=== PATIENT | male | born 1985 | race Caucasian/White ===

== ENCOUNTER 2021-11-15 08:31 | Emergency (ER) | payer OTHER, SELFPAY ==
[2021-11-15 08:44] VITALS: BP 139/78; PULSE 105; RESP 18; TEMP 36.7; O2SAT 100
[2021-11-15 08:45] VITALS: BP 139/78; PULSE 105; RESP 18; TEMP 36.7; O2SAT 100
--- NOTE | 2021-11-15 09:00 | ED.URI ---
HPI - URI/Sore Throat General Chief Complaint: Upper Respiratory Infection Stated Complaint: Cold Time Seen by Provider: 11/15/21 08:45 Source: patient and RN notes reviewed Mode of arrival: ambulatory Limitations: no limitations History of Present Illness HPI Narrative: 2weeks Paul is a 36-year-old male patient who ambulated into the [facility]. Patient states he has had runny nose, cough, sinus and nasal congestion on and off fever since , 11/12/2021. Patient has been fully vaccinated for Covid and has his booster shot. Patient states he was around someone who did have Covid. Patient has been taking ibuprofen for the fever. Related Data Home Medications Medication Instructions Recorded Confirmed No Home Medications 11/15/21 11/15/21 Allergies Allergy/AdvReac Type Severity Reaction Status Date / Time No Known Allergies Allergy Mild Unverified 11/15/21 08:44 Review of Systems Review of Systems: CONSTITUTIONAL: Denies body aches,+ fever, denies chills, or sweats. EYES: Denies visual changes, redness, or discharge. ENT: + rhinorrhea, +congestion, +sore throat, denies otalgia. CARDIOVASCULAR: Denies chest pain, palpitations, or edema. RESPIRATORY: + cough denies dyspnea. GASTROINTESTINAL: Denies abdominal pain, nausea, vomiting, or diarrhea. GENITOURINARY: Denies dysuria or hematuria. SKIN: Denies rash, itching, or wounds. MUSCULOSKELETAL: Denies back pain, joint pain, or myalgia. NEUROLOGIC: Denies headache, numbness, tingling, or weakness. PSYCH: Denies depression or anxiety. All systems reviewed & are unremarkable except as noted in HPI and below PMFSH Comments At time of signature, I have reviewed and agree with nursing past medical, surgical, social and family history unless otherwise noted. Please see nursing chart for further information. There is no relevant family history pertinent to the presenting complaint Exam Narrative: GENERAL: Well-appearing, well-nourished, and in no acute distress. HEAD: Normocephalic, atraumatic. EYES: EOMI. No redness or drainage. Conjunctivae normal. ENT: Mucous membranes pink and moist. Nasal passages erythematous with clear rhinorrhea. Bilateral TMs are dull with moderate fluid. Posterior pharynx is erythemic with moderate amount of postnasal drainage. Uvula midline. NECK: Normal AROM. Supple. anterior cervical lymphadenopathy. CHEST: No respiratory distress. Clear to auscultation. MUSCULOSKELETAL: No bony tenderness. EXTREMITIES: Normal range of motion. No edema. SKIN: Warm, dry, no rash. Capillary refill normal. Normal skin turgor. NEURO: No focal deficits. Alert and oriented x3. Gait steady. PSYCH: Normal affect. No signs of depression or anxiety. Course Vital Signs Vital signs: Vital Signs Temperature 36.7 C 11/15/21 08:44 Pulse Rate 105 H 11/15/21 08:44 Respiratory Rate 18 11/15/21 08:44 Blood Pressure 139/78 11/15/21 08:44 Pulse Oximetry 100 11/15/21 08:44 Temperature 36.7 C 11/15/21 08:45 Pulse Rate 105 H 11/15/21 08:45 Respiratory Rate 18 11/15/21 08:45 Blood Pressure 139/78 11/15/21 08:45 Pulse Oximetry 100 11/15/21 08:45 Reviewed. Pt has been instructed to follow up with his PCP regarding his elevated blood pressure today. MDM - URI/Sore Throat MDM Narrative Medical decision making narrative: Rapid COVID-19 test is negative. Patient declined Covid PCR test. Patient was instructed to use Motrin or Tylenol for fever or pain. Use [id number] cough and cold medicine per litigation manager's instructions. Follow-up with your primary care physician for any continued or worsening of symptoms in the next 7 to 10 days. Follow-up sooner for worsening of symptoms Differential Diagnosis Differential diagnosis: Likely upper respiratory infection, otitis media, viral infection and other (COVID-19) Medical Records Attestation: I reviewed the patient's medical records. Lab Data Attestation: I reviewed th
== END 2021-11-15 09:22 | disposition home or self-care (01) ==
PROVIDERS: Emergency Provider Nurse Practitioner Family
DX: J32.9 Chronic sinusitis, unspecified (principal); Z20.822 Contact with and (suspected) exposure to COVID-19
CPT/HCPCS: 87426; 99213; C9803; G0463

== ENCOUNTER 2022-03-26 07:34 | Outpatient (CLI) | payer OTHER, SELFPAY ==
--- NOTE | ~2022-03-26 | US_ITS ---
EXAMINATION: US soft tissue groin RT DATE: 03/26/2022 08:46 INDICATION: Right groin pain TECHNIQUE: Multiple grayscale and Doppler ultrasound images of the region of concern at the right los in and lower abdomen/pelvis were obtained. COMPARISON: None FINDINGS: There are several normal-sized right inguinal lymph nodes with central fatty sariah, the largest measur ing up to 7 mm in maximal short axis diameter. No other abnormal masses or fluid collections identifi ed. No evident inguinal hernia. IMPRESSION: 1. Normal study demonstrating a few normal-sized right inguinal lymph nodes. Reviewed, dictated and finalized at location A.
== END 2022-03-26 07:35 ==
PROVIDERS: PCP Internal Medicine; Visit Provider Internal Medicine
DX: R10.31 Right lower quadrant pain (principal); M79.89 Other specified soft tissue disorders
CPT/HCPCS: 76882

== ENCOUNTER 2025-01-27 10:15 | Emergency (ER) | payer OTHER, SELFPAY ==
--- NOTE | ~2025-01-27 | XR_ITS ---
Clinical Indication: Dyspnea PA and lateral views of the chest: Comparison: 01/01/2009 Findings: The lungs are clear, without evidence of focal consolidation or pleural effusion. Cardiome diastinal silhouette is within normal limits. Bones and soft tissues are unremarkable. Impression: Normal chest. Reviewed, dictated and finalized at location . Impression: Normal chest.
--- NOTE | 2025-01-27 10:18 | ED_ITS ---
HPI - General Adult General Chief complaint: Upper Respiratory Infection Stated complaint: SOB,dizzy,legs cold/sweaty Time Seen by Provider: 01/27/25 10:41 Source: patient, RN notes reviewed and old records reviewed Mode of arrival: ambulatory Limitations: no limitations History of Present Illness HPI narrative: 39-year-old male presents to the [facility] with 2-3 months multiple complaints. Patient reports that he is overdue for an appointment with his primary care provider. States for the last 2-3 months after he eats a large meal he has been feeling sick to his stomach. For several weeks has had some i ncreasing shortness of breath especially after vaping. States that in November and December he stopped using alcohol, restarted recently. Did drink last night between 9 and 10:00 p.m.. Woke up this morning about 5:00 a.m. and was using his vape, states that he felt off , dizzy and sweaty. Denies any fever. Denies any chest pain. Discussion with the patient he was hoping to get some blood work done, explained that unfortunately at the [facility] we do not offer those services, encourage him to follow up with his primary care provider as soon as possible. Discussed signs and symptoms to proceed to the emergency room which he verbalized understanding. Onset (ago): month(s) (2-3) Related Data Home Medications ?Medication ?Instructions ?Recorded ?Confirmed ?Last Taken ?Type No Home Medications 11/15/21 01/27/25 Unknown History Allergies Allergy/AdvReac Type Severity Reaction Status Date / Time No Known Allergies Allergy Mild Verified 01/27/25 10:29 Review of Systems Review of Systems: All systems reviewed & are unremarkable except as noted in HPI and below Constitutional: Constitutional: Reports as per HPI ENT: Reports system reviewed and no additional complaints, except as documented Cardiovascular: Cardiovascular: Reports no additional cardiovascular complaints, Denies chest pain and Denies dyspnea Respiratory: Respiratory: Reports as per HPI, Denies chest congestion, Reports cough and Denies dyspnea Musculoskeletal: Musculoskeletal: Reports no additional musculoskeletal complaints Integumentary/Breasts: Skin/Breast: Reports system reviewed and no additional complaints, except as docu PMFSH Surgical History Surgical History Hx of right knee surgery meniscal debridement Family History Family History Father Hypertension Social History Social History Smoking status: Current every day smoker Tobacco type: e-cigarettes/vaping Additional smoking assessment comments: quit smoking ciagettes 2022, now vaping and trying to reduce use Alcohol intake: current Alcohol use details: 6-10 beers a say Substance use: never Substance use type: does not use Last use: tried marijuana 2021, felt anxious with use Occupation/Education: occupation Comments At the time of my signature, I reviewed and agree with the nursing past medical, surgical, social, and family history. There is no relevant family history pertinent to the patient complaint. Exam Const: General: cooperative, comfortable, no acute distress, well developed, alert, ill appearing chronically, well nourished and obese Nutritional Appearance: well nourished and obese Orientation/consciousness: patient oriented x3 Limitations: no limitations HENMT: Head: normal to inspection Ears: hearing grossly normal bilaterally, external ears normal, TM's normal bilaterally, EAC's normal, mastoids normal and no periauricular adenopathy Mouth: Yes Normal oral and palatal mucosa present, Yes lip normal, Yes tongue normal and Yes moist mucous membranes Throat: posterior oropharynx normal, uvula midline and no uvular edema Eyes: General: appearance normal, both eyes and all related structures Alignment and Position: alignment normal Neck: Neck: normal visual inspection, full ROM, no lymphadenopathy and no meningeal signs Chest: Chest palpation & inspection: normal inspection of the chest Resp: Effort & Inspection: normal respiratory effort and able to speak in complete sentences Auscultation: clear to auscultation bilaterally, no crackles, no rales, no rhonchi and no wheezes Cardio: Rate: regular rate Skin: General skin exam: normal color and no rashes or lesions noted Neuro: General: patient oriented x3, gait normal, moves all extremities and no meningeal signs Cognition (Neuro): normal cognition Speech: normal speech Gait exam (Neuro): Normal gait present Extrem: General: normal to inspection, full ROM, capillary refill normal and normal gait Psych: Appearance: grossly normal and well kempt Mental Status: mental status grossly normal Speech and movement: Normal speech and movement present and Clear speech present Affect: normal affect Attitude: cooperative Course Course Emergency Course: Discharge instructions reviewed with parent/patient, as well as provided in writing per nursing staff. The instructions also include specific and strict return/GO TO THE ER as well as f/u information. All questions have been answered, and the parent/patient deny any further questions with discharge and discharge plan. Some parts of this dictation were generated by voice recognition software and may contain typographical and/or grammatical inaccuracies. Level of Care: Express Care Visit Vital Signs Vital signs: Vital Signs Temperature 97.1 F L 01/27/25 10:40 Pulse Rate 101 H 01/27/25 10:40 Respiratory Rate 16 01/27/25 10:40 Blood Pressure 137/84 01/27/25 10:40 Pulse Oximetry 98 01/27/25 10:40 Oxygen Delivery Room Air 01/27/25 10:40 Temperature 97.1 F L 01/27/25 10:40 Pulse Rate 101 H 01/27/25 10:40 Respiratory Rate 16 01/27/25 10:40 Blood Pressure 137/84 01/27/25 10:40 Pulse Oximetry 98 01/27/25 10:40 Oxygen Delivery Room Air 01/27/25 10:40 Reviewed Medical Decision Making MDM Narrative Medical decision making narrative: Patient sitting comfortably in exam room. Nontoxic, vitals stable. Patient in no acute distress Patient presents for 2-3 month history of fatigue, feeling sick after he eats, shortness of breath, dizzy after vaping. Patient was hoping to have blood workup accomplished at today's visit, explained that is not a service we offer in the [facility]. Encourage patient to follow- up with primary care provider, discussed with patient and his signs and symptoms proceed to the emergency room which both verbalized understanding. Discharge instructions reviewed with patient, as well as provided in writing per nursing staff. The instructions also include specific and strict return/GO TO THE ER as well as f/u information. All questions have been answered, and the patient deny any further questions with discharge and discharge plan. Some parts of this dictation were generated by voice recognition software and may contain typographical and/or grammatical inaccuracies. Differential Diagnosis Differential Diagnosis: Liver enzymes, alcohol withdrawal, chronic fatigue, pneumonia, bronchitis, COPD Medical Records Medical records reviewed: Yes I reviewed the external patient's medical records. Vital Signs Vital Signs: Vital Signs Temperature 97.1 F L 01/27/25 10:40 Pulse Rate 101 H 01/27/25 10:40 Respiratory Rate 16 01/27/25 10:40 Blood Pressure 137/84 01/27/25 10:40 Pulse Oximetry 98 01/27/25 10:40 Oxygen Delivery Room Air 01/27/25 10:40 Temperature 97.1 F L 01/27/25 10:40 Pulse Rate 101 H 01/27/25 10:40 Respiratory Rate 16 01/27/25 10:40 Blood Pressure 137/84 01/27/25 10:40 Pulse Oximetry 98 01/27/25 10:40 Oxygen Delivery Room Air 01/27/25 10:40 Reviewed Lab Data Lab results reviewed: Yes I reviewed the patient's lab results. Labs: Reviewed Imaging Data Radiologist's impression: Clinical Indication: Dyspnea PA and lateral views of the chest: Comparison: 01/01/2009 Findings: The lungs are clear, without evidence of focal consolidation or pleural effusion. Cardiomediastinal silhouette is within normal limits. Bones and soft tissues are unremarkable. Impression: Normal chest. Critical Care Time Critical Care Time Critical Care Time: No Discharge Plan Discharge Clinical Impression: Shortness of breath Fatigue Qualifiers: Fatigue type: unspecified Qualified Code(s): R53.83 - Other fatigue Patient Disposition: Home, Self-Care Condition: Stable Instructions: Antibiotic Form, Fatigue (ED) Additional Instructions: Please follow-up with your primary care provider as soon as possible for further evaluation, testing and treatment Please go directly to the emergency room for new worsening Patient Language: Albanian Prescriptions: No Action No Home Medications Follow-up/Referrals: She Cedeno APRN [Primary Care Provider] - Stand Alone Forms: Work/School Release IP Time of Disposition: 11:14
[2025-01-27 10:40] VITALS: BP 137/84; PULSE 101; RESP 16; TEMP 36.2; O2SAT 98
== END 2025-01-27 11:25 | disposition home or self-care (01) ==
PROVIDERS: Emergency Provider Nurse Practitioner; PCP Nurse Practitioner Family
DX: R06.02 Shortness of breath (principal); R53.83 Other fatigue; F17.290 Nicotine dependence, other tobacco product, uncomplicated
CPT/HCPCS: 71046; 99213; G0463